=== PATIENT | male | born 1990 | race Caucasian/White ===

== ENCOUNTER 2022-10-05 13:13 | Emergency (ER) | payer OTHER ==
[~2022-10-05] VITALS: Ht 172.7 cm; Wt 81.6 kg
[2022-10-05] MEDS ORDERED: SYNTHROID112 MCG PO (13:33)
== END 2022-10-05 16:04 | disposition home or self-care (01) ==
LOC: ER 13:13
DX: T78.40XA Allergy, unspecified, initial encounter (principal); Z88.6 Allergy status to analgesic agent; Z79.890 Hormone replacement therapy